=== PATIENT | male | born 1960 | race Caucasian/White ===

== ENCOUNTER 2016-11-09 10:39 | Emergency (ER) | payer OTHER ==
[~2016-11-09] VITALS: Ht 172.7 cm; Wt 130.0 kg
[2016-11-09 10:41] VITALS: BP 151/79; PULSE 59; RESP 16; TEMP 97.6; O2SAT 97
[2016-11-09 11:35] LABS: BACTERIA, URINE OCC /hpf; BLOOD, URINE TRACE (NEG); COMMENT (UR) CATH-CULTURE IND; CULTURE IF INDICATED CATH CULTURE IND; GLUCOSE,URINE NEG (NEG); HYALINE CAST, URINE 3 /lpf (RARE); KETONE, URINE NEG (NEG); NITRITE,URINE NEG (NEG); PH, URINE 6.5 (5.0-8.5); SQUAMOUS EPITHELIAL CELL URINE 1 /hpf (0-5); URINE COLOR YELLOW (YELLW/STRAW)
[2016-11-09] MEDS ORDERED: CEPH-460 PO (12:03)
--- NOTE | 2016-11-09 12:08 | PD ---
HPI Chief Complaint: Complaint Time Seen by Provider: 12:02 Travel History International Travel<30 days: No Contact w/Intl Traveler<30days: No Traveled to known affect area: No History of Present Illness HPI 56-year-old male presents to the emergency Department with complaint of dysuria 3 days. He has history of urinary tract infections. Denies penile discharge, pain, testicular swelling. Denies sexual intercourse 2 years. Denies hematuria. Denies abdominal pain, nausea, vomiting. Denies fever, chills. Reports right-sided low back pain. Has not taken any medications or tried any treatments to alleviate his symptoms. No known relieving factors. Allergies to hydrocodone and Tylenol. Does not have primary care provider in this area. No other modifying factors or associated signs and symptoms. PFSH Past Medical History Hx Anticoagulant Therapy: Yes Cardiovascular Problems: Yes (CHF/ OPEN HEART SURGERY/ 2 STENT) Diabetes: Yes Social History Alcohol Use: Yes Tobacco Use: Yes Substance Use: No Allergies-Medications (Allergen,Severity, Reaction): Coded Allergies: Hydrocodone (Verified Allergy, Mild, itchy, 11/09/16) Tylenol (Verified Allergy, Mild, itchy, 11/09/16) Reported Meds & Prescriptions Reported Meds & Active Scripts Active Keflex (Cephalexin) 500 Mg Cap 500 Mg PO Q12H 7 Days Review of Systems Except as stated in HPI: all other systems reviewed are Neg Physical Exam Narrative GENERAL: Well-nourished, well-developed male patient, in no acute distress; afebrile, nontoxic-appearing SKIN: Warm and dry. No rash. HEAD: Atraumatic. Normocephalic. EYES: Pupils equal and round. No scleral icterus. No injection or drainage. ENT: Mucosa pink and moist. NECK: Trachea midline. CARDIOVASCULAR: Regular rate and rhythm. RESPIRATORY: No accessory muscle use. GASTROINTESTINAL: Abdomen soft, non-tender, nondistended. Hepatic and splenic margins not palpable. Bowel sounds are active 4 quadrants. Bladder nontender and nondistended. MUSCULOSKELETAL: No obvious deformities. No clubbing. No cyanosis. No edema. BACK: Right CVA tenderness NEUROLOGICAL: Awake and alert. Oriented 3. No obvious cranial nerve deficits. Motor grossly within normal limits. Normal speech. Moves all extremities. 5/5 strength to all extremities. PSYCHIATRIC: Appropriate mood and affect; insight and judgment normal. Data Data Last Documented VS Vital Signs Date Time Temp Pulse Resp B/P Pulse Ox O2 Delivery O2 Flow Rate FiO2 11/09/16 10:41 97.6 59 16 151/79 97 Orders Urinalysis - C+S If Indicated (11/09/16 10:48) Urine Culture (11/09/16 11:00) Lidocaine 1% Inj (50 Ml) (Xylocaine 1% I (11/09/16 12:15) Ceftriaxone Inj (Rocephin Inj) (11/09/16 12:15) Labs Laboratory Tests Test 11/09/16 11:00 Urine Color YELLOW Urine Turbidity HAZY Urine pH 6.5 Urine Specific [place] 1.017 Urine Protein 30 mg/dL Urine Glucose (UA) NEG mg/dL Urine Ketones NEG mg/dL Urine Occult Blood TRACE Urine Nitrite NEG Urine Bilirubin NEG Urine Urobilinogen LESS THAN 2.0 MG/DL Urine Leukocyte Esterase LARGE Urine RBC 8 /hpf Urine WBC /hpf Urine WBC Clumps MANY Urine Squamous Epithelial 1 /hpf Cells Urine Bacteria OCC /hpf Urine Hyaline Casts 3 /lpf Microscopic Urinalysis Comment CATH-CULTURE IND MDM Medical Decision Making Medical Screen Exam Complete: Yes Emergency Medical Condition: Yes Medical Record Reviewed: Yes Differential Diagnosis Urinary tract infection, cystitis, pyelonephritis Narrative Course 56-year-old male with dysuria 3 days. History of UTIs. Denies penile discharge. Patient is afebrile and nontoxic-appearing. He denies fever, chills , nausea, vomiting. Right-sided CVA tenderness on exam. Urinalysis with signs of infection. Rocephin IM administered in ER. Keflex prescribed for home. Patient is medically cleared and stable for discharge. Discussed reasons to return to the emergency department. Instructed patient to follow up with primary care provider. Patient agrees with treatment plan. The patients vital signs are stable and the patient is stable for outpatient follow-up and treatment. Patient discharged home, stable and in no acute distress. Diagnosis Primary Impression: UTI (urinary tract infection) Qualified Code: N39.0 - Urinary tract infection without hematuria, site unspecified Referrals: Primary Care Physician Patient Instructions: General Instructions, Urinary Tract Infection in Men (ED) Departure Forms: Tests/Procedures, Work Release Enter return to work date: Nov 10, 2016 Additional Instructions: Take antibiotics as prescribed and complete full course Drink plenty of fluids Maintain good personal hygiene Follow-up with primary care provider Return to the emergency department immediately with worsening of symptoms Med/Other Pt SpecificInfo: Prescription(s) given Scripts Cephalexin (Keflex)500 Mg [id number] Mg PO Q12H 7 Days Ref 0 Prov:Amina Mckeon 11/09/16 Disposition: 01 DISCHARGE HOME Condition: Stable Amina Mckeon Nov 09, 2016 12:08
[2016-11-09] MEDS ORDERED: LIDOCAINE HCL 1% 50 ML VIAL IM ONE (12:15)
== END 2016-11-09 13:00 | disposition home or self-care (01) ==
LOC: NEPB 10:39
DX: N39.0 Urinary tract infection, site not specified (principal); B96.20 Unspecified Escherichia coli [E. coli] as the cause of diseases classified elsewhere; M54.5 Low back pain; E11.9 Type 2 diabetes mellitus without complications; Z72.0 Tobacco use; Z79.01 Long term (current) use of anticoagulants; Z86.79 Personal history of other diseases of the circulatory system; Z87.440 Personal history of urinary (tract) infections
CPT/HCPCS: 81001; 87077; 87086; 87186; 96365; 99283; J0696

== ENCOUNTER 2017-03-22 20:00 | Emergency (ER) | payer OTHER ==
[~2017-03-22] VITALS: Ht 172.7 cm; Wt 125.0 kg
[~2017-03-22 20:00] MED LIST: CEPH-460 PO
[2017-03-22 20:01] VITALS: BP 158/86; PULSE 57; RESP 18; TEMP 98.5; O2SAT 97
[2017-03-22] MEDS ORDERED: MORPHINE SULFATE 8 MG/ML INJ IM ONE (22:30)
--- NOTE | 2017-03-22 23:19 | RADRPT ---
EXAM DATE/TIME: 03/22/2017 22:51 [facility] COMPARISON: No previous studies available for comparison. INDICATIONS : Trauma; patient fell - right chest pain. RADIATION DOSE: 23.96 CTDIvol (mGy) ; Combined studies - Thorax/Abdomen/Pelvis MEDICAL HISTORY : Cardiovascular disease. Congestive heart failure. SURGICAL HISTORY : CABG Cholecystectomy. back surgery ENCOUNTER: Initial ACUITY: 3 days PAIN SCALE: 8/10 LOCATION: Right chest TECHNIQUE: Volumetric scanning of the chest was performed. Using automated exposure control and adjustment of t he mA and/or kV according to patient size, radiation dose was kept as low as reasonably achievable to obtain optimal diagnostic quality images. DICOM format image data is available electronically for r eview and comparison. FINDINGS: LUNGS: There is no consolidation or pneumothorax. No concerning pulmonary nodule is visualized. PLEURAE: There is no pleural effusion. Mild fatty pleural thickening throughout the left chest, clearly benign . MEDIASTINUM: Clips and wires suggest CABG . The heart and great vessels demonstrate no acute abnormality. There is no mediastinal or hilar lymphadenopathy. AXILLAE: Within normal limits. No lymphadenopathy. MUSCULOSKELETAL: Within normal limits for patient age. MISCELLANEOUS: The visualized upper abdominal organs demonstrate no acute abnormality. CONCLUSION: Normal examination status post CABG. No concerning infiltrate or mass. Henrry Giron MD on March 22, 2017 at 23:14 Board Certified Radiologist. This report was verified electronically.
--- NOTE | 2017-03-22 23:21 | RADRPT ---
EXAM DATE/TIME: 03/22/2017 22:51 [facility] COMPARISON: No previous studies available for comparison. INDICATIONS : Trauma; patient fell 3 days ago. ORAL CONTRAST: No oral contrast ingested. RADIATION DOSE: 23.96 CTDIvol (mGy) MEDICAL HISTORY : Cardiovascular disease. Congestive heart failure. SURGICAL HISTORY : CABG Cholecystectomy.back surgery ENCOUNTER: Initial ACUITY: 3 days PAIN SCALE: 6/10 LOCATION: abdomen TECHNIQUE: Volumetric scanning of the abdomen and pelvis was performed. Using automated exposure control and ad justment of the mA and/or kV according to patient size, radiation dose was kept as low as reasonably achievable to obtain optimal diagnostic quality images. DICOM format image data is available electro nically for review and comparison. FINDINGS: LOWER LUNGS: The visualized lower lungs are clear. LIVER: Some enlargement of left lobe of liver suggesting cirrhosis . Homogeneous density without lesion. T here is no dilation of the biliary tree. Status post cholecystectomy. SPLEEN: Enlarged size without lesion. PANCREAS: Within normal limits. KIDNEYS: Normal in size and shape. There is no mass, stone, or hydronephrosis. ADRENAL GLANDS: Within normal limits. VASCULAR: There is no aortic aneurysm. BOWEL/MESENTERY: Status post right hemicolectomy. The stomach, small bowel, and colon demonstrate no acute abnormality . There is no free intraperitoneal air or fluid. Suspect hiatal hernia repair. ABDOMINAL WALL: Within normal limits. RETROPERITONEUM: There is no lymphadenopathy. BLADDER: No wall thickening or mass. REPRODUCTIVE: Within normal limits. INGUINAL: There is no lymphadenopathy or hernia. MUSCULOSKELETAL: Within normal limits for patient age. CONCLUSION: Evidence of cirrhosis with splenomegaly. Status post right hemicolectomy. Cholecystectomy clips. Rest of the study is unremarkable. Henrry Giron MD on March 22, 2017 at 23:17 Board Certified Radiologist. This report was verified electronically.
--- NOTE | 2017-03-22 23:31 | PD ---
HPI Chief Complaint: Fall Time Seen by Provider: 22:14 Travel History International Travel<30 days: No Contact w/Intl Traveler<30days: No Traveled to known affect area: No History of Present Illness HPI 56-year-old male came to the emergency room because of right sided thoracic wall pain. Patient says that 3 days ago he tripped over the leash of his dog and landed on the concrete steps. He ended up injuring the right side of his chest wall. However he didn't think much of it and but last night when he rolled onto his right side while he was asleep he got a sudden sharp pain and since then he's been having pain when he takes a deep breath. No history of fever or chills. No history of shortness of breath. Patient seemed uncomfortable. PFSH Past Medical History Narrative Medical List of his past medical, surgical, social and family history was reviewed from the nursing note. Hx Anticoagulant Therapy: Yes Cardiac Catheterization: Yes Cardiovascular Problems: Yes (STENTS X2, OPEN HEART X2) Congestive Heart Failure: Yes Coronary Artery Disease: Yes Diabetes: Yes Patient Takes Glucophage: No Tetanus Vaccination: > 5 Years Influenza Vaccination: No Past Surgical History Cholecystectomy: Yes Coronary Artery Bypass Graft: Yes Social History Alcohol Use: Yes (1 GLASS WINE NIGHTLY) Tobacco Use: Yes Substance Use: No Allergies-Medications (Allergen,Severity, Reaction): Coded Allergies: Hydrocodone (Verified Allergy, Mild, itchy, 03/22/17) Tylenol (Verified Allergy, Mild, itchy, 03/22/17) Penicillin (Verified Adverse Reaction, Severe, 03/22/17) Comments List of his allergies reviewed from the nursing note. Reported Meds & Prescriptions Reported Meds & Active Scripts Active Keflex (Cephalexin) 500 Mg Cap 500 Mg PO Q12H 7 Days Narrative Medication List of his home medications reviewed from the nursing note. Review of Systems Except as stated in HPI: all other systems reviewed are Neg Physical Exam Narrative GENERAL: Morbidly obese, moderate distress SKIN: Focused skin assessment warm/dry. Bruise on the right pectoral area, tender to touch HEAD: Atraumatic. Normocephalic. EYES: Pupils equal and round. No scleral icterus. No injection or drainage. ENT: No nasal bleeding or discharge. Mucous membranes pink and moist. NECK: Trachea midline. No JVD. CARDIOVASCULAR: Regular rate and rhythm. No murmur appreciated. RESPIRATORY: No accessory muscle use. Clear to auscultation. Breath sounds equal bilaterally. GASTROINTESTINAL: Abdomen soft, non-tender, nondistended. Hepatic and splenic margins not palpable. MUSCULOSKELETAL: No obvious deformities. No clubbing. No cyanosis. No edema. NEUROLOGICAL: Awake and alert. No obvious cranial nerve deficits. Motor grossly within normal limits. Normal speech. PSYCHIATRIC: Appropriate mood and affect; insight and judgment normal. Data Data Last Documented VS Vital Signs Date Time Temp Pulse Resp B/P Pulse Ox O2 Delivery O2 Flow Rate FiO2 03/22/17 20:01 98.5 57 18 158/[address] Abd/Pel W/O Iv Contrast (03/22/17 ) Ct Thorax/ Chest Wo Iv Contras (03/22/17 ) Morphine Inj (Morphine Inj) (03/22/17 22:30) MDM Medical Decision Making Medical Screen Exam Complete: Yes Emergency Medical Condition: Yes Medical Record Reviewed: Yes Differential Diagnosis Rib fracture, pneumothorax, hemopneumothorax, muscular injury Narrative Course 11:30 PM patient was given pain medication. CT scan of his thorax, abdomen and pelvis was done. It was read by the radiologist to be negative for any acute injury. Patient did have cirrhosis and splenomegaly. I let the patient know about this. He will be discharged home. Procedures EKG Prior to Arrival: No Diagnosis Primary Impression: Fall Qualified Code: W19.XXXA - Fall, initial encounter Additional Impressions: Contusion Qualified Code: S20.211A - Contusion of right front wall of thorax, initial encounter Morbid obesity Qualified Code: E66.01 - Morbid obesity, unspecified obesity type Referrals: Primary Care Physician Additional Instructions: Please return to the ER if the condition worsens or any other new concerns. Take Motrin/ibuprofen/Advil for the pain if needed. Your CAT scan showed that he had cirrhosis and portal hypertension. Please discuss this with her primary care. He should not be drinking alcohol at all. Med/Other Pt SpecificInfo: Med Stopped Disposition: DISCHARGE HOME Condition: Stable Chantel Torres MD Mar 22, 2017 23:31
== END 2017-03-23 00:02 | disposition home or self-care (01) ==
LOC: NEPD 20:00
DX: S20.211A Contusion of right front wall of thorax, initial encounter (principal); E66.01 Morbid (severe) obesity due to excess calories; I50.9 Heart failure, unspecified; W18.09XA Striking against other object with subsequent fall, initial encounter; Y93.K1 Activity, walking an animal; Y92.096 Garden or yard of other non-institutional residence as the place of occurrence of the external cause
CPT/HCPCS: 71250; 74176; 99285; J2270